=== PATIENT | female | born 1995 | race Caucasian/White ===

== ENCOUNTER 2022-06-01 02:44 | Emergency (ER) | payer OTHER ==
[2022-06-01] MEDS ORDERED: IPRATROPIUM-ALBUTEROL 3 ML NEB INHALATION STA (02:52)
[2022-06-01 02:57] VITALS: TEMP 98.3
[2022-06-01] MEDS ORDERED: methylPREDNISolone SOD SUCCI 125 MG/2 ML VIAL IV STA (03:19)
[2022-06-01] MEDS ORDERED: ALBUTEROL NEBULIZED 2.5 MG/3 ML INHALATION STA (03:19)
[2022-06-01] MEDS ORDERED: SODIUM CHLORIDE 0.9% 1,000 ML IV STA (03:19)
--- NOTE | 2022-06-01 03:21 | ED ---
Asthma HPI - General Chief Complaint: Shortness of Breath Stated Complaint: GUSTAVO Time Seen by Provider: 06/01/22 03:19 Source: patient, RN notes reviewed, old records reviewed Mode of arrival: wheelchair Limitations: no limitations - History of Present Illness Initial Comments: This is a 26-year-old female to the emergency department for evaluation. Ladonna gutierrez presents today for evaluation regards to asthma exacerbation. Increased cough congestion shortness of breath unable to catch her breath and feels like her heart is racing. Patient states symptoms came on pretty suddenly tonight and got worse. Patient states she had a sore throat yesterday and this shortness of breath came on suddenly today MD Complaint: "asthma attack", shortness of breath, wheezing -: hour(s) Asthma History: childhood onset Severity: moderate Context: recent URI (Possible strep throat), ran out of meds Associated Symptoms: dry cough Treatments Prior to Arrival: inhaled bronchodilator - Related Data Home Medications Medication Instructions Recorded Confirmed Amoxicillin 500 mg PO Q8H 06/01/22 06/01/22 Previous Rx's Medication Instructions Recorded Albuterol Nebulized [Ventolin 2.5 mg INHALATION Q4H PRN #25 each 06/01/22 Nebulized] Albuterol Sulfate [Proair Hfa] 1 - 2 puff INHALATION Q4H PRN #8.5 06/01/22 gm predniSONE 50 mg PO DAILY #5 tab 06/01/22 Allergies Allergy/AdvReac Type Severity Reaction Status Date / Time No Known Allergies Allergy Verified 06/01/22 02:58 Review of Systems ROS Statement: Those systems with pertinent positive or pertinent negative responses have been documented in the HPI. ROS Other: All systems not noted in ROS Statement are negative. Past Medical History Past Medical History: Asthma History of Any Multi-Drug Resistant Organisms: None Reported Past Surgical History: Unable to Obtain Past Psychological History: No Psychological Hx Reported Smoking Status: Never smoker Past Alcohol Use History: None Reported Past Drug Use History: None Reported General Exam Limitations: no limitations General appearance: alert, in no apparent distress, anxious Head exam: Present: atraumatic, normocephalic, normal inspection Eye exam: Present: normal appearance, PERRL, EOMI. Absent: scleral icterus, conjunctival injection, periorbital swelling ENT exam: Present: normal exam, mucous membranes dry Neck exam: Present: normal inspection. Absent: tenderness, meningismus, lymphadenopathy Respiratory exam: Present: respiratory distress, wheezes, accessory muscle use, decreased breath sounds, prolonged expiratory. Absent: rales, rhonchi, stridor Cardiovascular Exam: Present: regular rate, tachycardia, normal heart sounds. Absent: systolic murmur, diastolic murmur, rubs, gallop, clicks GI/Abdominal exam: Present: soft, normal bowel sounds. Absent: distended, tenderness, guarding, rebound, rigid Extremities exam: Present: normal inspection, full ROM, normal capillary refill. Absent: tenderness, pedal edema, joint swelling, calf tenderness Back exam: Present: normal inspection Neurological exam: Present: alert, oriented X3, CN II-XII intact Psychiatric exam: Present: normal affect, normal mood Skin exam: Present: warm, dry, intact, normal color. Absent: rash Course Vital Signs 06/01/22 06/01/22 06/01/22 02:53 02:57 03:15 Temperature 98.3 F Pulse Rate 87 106 H 117 H Respiratory 34 H Rate Blood Pressure 148/107 O2 Sat by Pulse 88 L Oximetry 06/01/22 06/01/22 06/01/22 04:19 04:22 04:41 Temperature Pulse Rate 96 92 113 H Respiratory 18 Rate Blood Pressure 129/80 O2 Sat by Pulse 95 Oximetry - Reevaluation(s) Reevaluation #1: 06/01/22 Medical record is reviewed Patient improved here in the emergency department Patient informed results and questions answered Medical Decision Making - Medical Decision Making 26 female to the emergency room for evaluation. Severe asthma exacerbation, kailey boo's symptoms are improved here in the ER she can be discharged home - Lab Data Result diagrams: 06/01/22 02:54 06/01/22 02:54 Lab Results 06/01/22 06/01/22 Range/Units 02:54 02:54 WBC 9.6 (3.8-10.6) k/uL RBC 4.52 (3.80-5.40) m/uL Hgb 14.6 (11.4-16.0) gm/dL Hct 41.1 (34.0-46.0) % MCV 90.8 (80.0-100.0) fL MCH 32.4 (25.0-35.0) pg MCHC 35.6 (31.0-37.0) g/dL RDW 12.6 (11.5-15.5) % Plt Count 168 (150-450) k/uL MPV 8.5 Neutrophils % 66 % Lymphocytes % 19 % Monocytes % 4 % Eosinophils % 8 % Basophils % 0 % Neutrophils # 6.4 (1.3-7.7) k/uL Lymphocytes # 1.9 (1.0-4.8) k/uL Monocytes # 0.4 (0-1.0) k/uL Eosinophils # 0.8 H (0-0.7) k/uL Basophils # 0.0 (0-0.2) k/uL Sodium 139 (137-145) mmol/L Potassium 3.9 (3.5-5.1) mmol/L Chloride 103 (98-107) mmol/L Carbon Dioxide 22 (22-30) mmol/L Anion Gap 14 mmol/L BUN 14 (7-17) mg/dL Creatinine 0.64 (0.52-1.04) mg/dL Est GFR (CKD-EPI)AfAm >90 (>60 ml/min/1.73 sqM) Est GFR (CKD-EPI)NonAf >90 (>60 ml/min/1.73 sqM) Glucose 97 (74-99) mg/dL Calcium 9.1 (8.4-10.2) mg/dL Magnesium 2.1 (1.6-2.3) mg/dL Total Bilirubin 0.9 (0.2-1.3) mg/dL AST 29 (14-36) U/L ALT 21 (4-34) U/L Alkaline Phosphatase 96 (38-126) U/L Total Protein 8.3 H (6.3-8.2) g/dL Albumin 4.6 (3.5-5.0) g/dL - Radiology Data Radiology results: report reviewed (Chest x-rays negative for acute disease), image reviewed Disposition Clinical Impression: Asthma with acute exacerbation Disposition: HOME SELF-CARE Condition: Good Instructions (If sedation given, give patient instructions): Asthma (ED) Prescriptions: predniSONE 50 mg PO DAILY #5 tab Albuterol Sulfate [Proair Hfa] 1 - 2 puff INHALATION Q4H PRN #8.5 gm PRN Reason: Shortness Of Breath Albuterol Nebulized [Ventolin Nebulized] 2.5 mg INHALATION Q4H PRN #25 each PRN Reason: Shortness Of Breath Is patient prescribed a controlled substance at d/c from ED?: No Referrals: None,Stated [Primary Care Provider] - 1-2 days Time of Disposition: 05:00
[2022-06-01 03:40] LABS: Basophils % (A) 0 %; Eosinophils # (A) 0.8 k/uL (0-0.7); Eosinophils % (A) 8 %; HCT 41.1 % (34.0-46.0); HGB 14.6 gm/dL (11.4-16.0); Lymphocytes # (A) 1.9 k/uL (1.0-4.8); Lymphocytes % (A) 19 %; MCH 32.4 pg (25.0-35.0); MCHC 35.6 g/dL (31.0-37.0); MCV 90.8 fL (80.0-100.0); Mean Platelet Volume 8.5; Monocytes # (A) 0.4 k/uL (0-1.0); Monocytes % (A) 4 %; Neutrophils # (A) 6.4 k/uL (1.3-7.7); Neutrophils % (A) 66 %; Platelet Count 168 k/uL (150-450); RBC 4.52 m/uL (3.80-5.40); RDW 12.6 % (11.5-15.5); WBC 9.6 k/uL (3.8-10.6)
[2022-06-01 03:44] LABS: ALT 21 U/L (4-34); AST 29 U/L (14-36); African American GFR (CKD) >90 (>60 ml/min/1.73 sqM); Albumin 4.6 g/dL (3.5-5.0); Anion Gap 14 mmol/L; Blood Urea Nitrogen 14 mg/dL (7-17); Calcium 9.1 mg/dL (8.4-10.2); Carbon Dioxide 22 mmol/L (22-30); Chloride 103 mmol/L (98-107); Glucose 97 mg/dL (74-99); Magnesium 2.1 mg/dL (1.6-2.3); Non-African American GFR(CKD) >90 (>60 ml/min/1.73 sqM); Potassium 3.9 mmol/L (3.5-5.1); Sodium 139 mmol/L (137-145); Total Bilirubin 0.9 mg/dL (0.2-1.3); Total Protein 8.3 g/dL (6.3-8.2)
[2022-06-01 03:45] LABS: Alkaline Phosphatase 96 U/L (38-126)
--- NOTE | 2022-06-01 04:05 | XR ---
EXAMINATION TYPE: XR chest 2V DATE OF EXAM: 06/01/2022 COMPARISON: NONE HISTORY: Difficulty breathing TECHNIQUE: 2 view FINDINGS: Heart and mediastinum are normal. Lungs are clear. Images normal. Bony thorax is intact there are chest leads. IMPRESSION: Normal chest.
[2022-06-01 04:20] VITALS: BP 129/80; RESP 18
[2022-06-01 04:42] VITALS: PULSE 113
== END 2022-06-01 05:12 | disposition home or self-care (01) ==
LOC: EC 02:44
DX: J45.901 Unspecified asthma with (acute) exacerbation (principal); Z79.51 Long term (current) use of inhaled steroids
CPT/HCPCS: 36415; 94640 ×2; 80053; 83735; 85025; 71046; 99285; 96374; 96361; J2930